=== PATIENT | male | born 1985 | race Caucasian/White ===

== ENCOUNTER 2018-01-21 23:50 | Emergency (ER) | payer OTHER ==
[~2018-01-21] VITALS: Ht 175.3 cm; Wt 79.6 kg
[~2018-01-21 23:50] MED LIST: IBUP-1050 PO
[2018-01-22] VITALS: TEMP 36.8; Ht 175.3 cm; Wt 79.6 kg
--- NOTE | 2018-01-22 00:20 | EMERGENCY ROOM VISIT NOTE ---
History Report prepared by Tanvi: Max Cano Under the Supervision of: Dr. Rosalind Rolon D.O. First contact with patient: 00:10 Chief Complaint: MENTAL HEALTH EVALUATION Stated Complaint: ANXIETY,MENTAL HEALTH History of Present Illness The patient is a 32 year old male who presents to the Emergency Room with complaints of persistent severe general anxiety for the last 24 hours. The patient states that minor things are bothering him. He is not sure why. Per , their pet chickens recently . They deny any other stressors. 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 He states that he enjoys taking care of their animals. He has a history of depression, anxiety, and bipolar disorder. He notes his depression is controlled with Effexor and Zyprexa He states that he was recently placed on Inderal three weeks ago for his anxiety, though he is not finding any relief with it. He reports a history of alcoholism and states that he drank a lot yesterday and today. He notes that he has been improved with it, though his anxiety is causing him to turn to alcohol more. He reports smoking marijuana twice a month. He denies any abdominal pain. He notes that he is eating and drinking well. Source of History: patient Onset: 24 hours Position: other (general) Symptom Intensity: severe Quality: other (anxiety) Timing: other (persistent) Associated Symptoms: No abdominal pain Review of Systems See HPI for pertinent positives & negatives. A total of 10 systems reviewed and were otherwise negative. Past Medical & Surgical Medical Problems: (1) Anxiety (2) Bipolar disorder (3) Depression (4) Drug overdose (5) Kidney stone Family History Diabetes mellitus FH: heart disease Hypertension Kidney stones Social History Smoking Status: Current Every Day Smoker Alcohol Use: occasionally Drug Use: marijuana Marital Status: single Housing Status: lives with family Occupation Status: unemployed Current/Historical Medications Scheduled Ibuprofen (Advil), 400-600 MG PO Q6H Allergies Coded Allergies: Aspirin (Unverified Adverse Reaction, Intermediate, VOMITING, MIGRAINES, 09/15/16) PER UROLOGY RECORDS Ketorolac Tromethamine (Verified Adverse Reaction, Unknown, nausea, ) Tramadol (Verified Adverse Reaction, Unknown, nausea, 09/15/16) Physical Exam Vital Signs Date Time Temp Pulse Resp B/P (MAP) Pulse Ox O2 Delivery O2 Flow Rate FiO2 01/22/18 01:55 84 18 140/91 95 Room Air 01/22/18 00:00 36.8 119 18 139/87 98 Room Air Physical Exam General : Appears sleep deprived. Smells of ETOH. HEENT: Head - normocephalic and atraumatic Pupils are equal, round, and reactive to light. Extraocular eye muscles are intact, and sclera are anicteric. Nose - moist nasal mucosa without discharge. Mouth - moist buccal mucosa. Oropharynx is nonerythematous and there is no tonsillar exudate or edema noted. Neck: Supple; no JVD, nuchal rigidity, cervical lymphadenopathy, or auscultated bruits. Heart: Regular rate and rhythm. There is a normal S1 and S2 with no murmurs, clicks, or gallops appreciated. Lungs: Clear to auscultation bilaterally with no wheezes, rales, or rhonchi. Abdomen: Soft, completely nontender, nondistended, with good bowel sounds. There are no palpable pulsatile masses or hepatosplenomegaly. There is no guarding, rigidity, or rebound noted. Extremities: No evidence of cyanosis, clubbing, or edema. There are easily palpable peripheral pulses. Skin: warm and dry with good turgor and no rashes. Psych: Describes significant anxiety, but denies SI or HI. Medical Decision & Procedures Laboratory Results 01/22/18 00:39 01/22/18 00:39 Test 01/22/18 00:10 01/22/18 00:39 Urine Color YELLOW Urine Appearance CLEAR (CLEAR) Urine pH 6.5 (4.5-7.5) Urine Specific Mark 1.011 (1.000-1.030) Urine Protein NEG (NEG) Urine Glucose (UA) NEG (NEG) Urine Ketones NEG (NEG) Urine Occult Blood NEG (NEG) Urine Nitrite NEG (NEG) Urine Bilirubin NEG (NEG) Urine Urobilinogen NEG (NEG) Urine Leukocyte Esterase NEG (NEG) Urine Opiates Screen POS (NEG) Urine Methadone, Qualitative NEG (NEG) Urine Barbiturates NEG (NEG) Urine Phencyclidine (PCP) Level NEG (NEG) Ur Amphetamine/Methamphetamine NEG (NEG) MDMA (Ecstasy) Screen NEG (NEG) Urine Benzodiazepines Screen NEG (NEG) Urine Cocaine Metabolite NEG (NEG) Urine Marijuana (THC) POS (NEG) Red Blood Count 4.98 M/uL (4.7-6.1) Mean Corpuscular Volume 94.8 fL (80-100) Mean Corpuscular Hemoglobin 32.7 pg (25-34) Mean Corpuscular Hemoglobin Concent 34.5 g/dl (32-36) RDW Standard Deviation 50.3 fL (36.4-46.3) RDW Coefficient of Variation 14.4 % (11.5-14.5) Mean Platelet Volume 9.2 fL (7.4-10.4) Anion Gap 4.0 mmol/L (3-11) Est Creatinine Clear Calc Drug Dose 89.2 ml/min Estimated GFR () 92.8 Estimated GFR (Non- 80.1 BUN/Creatinine Ratio 12.0 (10-20) Calcium Level 9.8 mg/dl (8.5-10.1) Total Bilirubin 0.5 mg/dl (0.2-1) Direct Bilirubin 0.1 mg/dl (0-0.2) Aspartate Amino Transf (AST/SGOT) 36 U/L (15-37) Alanine Aminotransferase (ALT/SGPT) 105 U/L (12-78) Alkaline Phosphatase 88 U/L (45-117) Total Protein 8.6 gm/dl (6.4-8.2) Albumin 4.5 gm/dl (3.4-5.0) Thyroid Stimulating Hormone (TSH) 1.900 uIu/ml (0.300-4.500) Salicylates Level 1.9 mg/dl (2.8-20) Acetaminophen Level 2 ug/ml (10-30) Ethyl Alcohol mg/dL 115.0 mg/dl (0-3) Laboratory results per my review. Medications Administered Medications (Trade) Dose Ordered Sig/Mil[place] Route Start Time Stop Time Status Last Admin Dose Admin Acetaminophen (Tylenol Tab) 1,000 mg NOW STAT PO 01/22/18 00:44 01/22/18 00:45 DC 01/22/18 00:53 1,000 MG Lorazepam (Ativan Tab) 1 mg NOW STAT SL 01/22/18 02:00 01/22/18 02:01 DC 01/22/18 02:08 1 MG Lorazepam (Ativan 1MG Home Pack) 1 homepack UD ONCE PO 01/22/18 02:00 01/22/18 02:01 DC 01/22/18 02:00 1 HOMEPACK Procedure 0044: Ordered Tylenol 1,000 mg PO 0200: Ordered Ativan 1 homepack PO and Ativan 1 mg SL ED Course 0025: Past medical records reviewed. The patient was evaluated in room A8. A complete history and physical exam was performed. Labs were drawn as above. 0044: Ordered Tylenol 1,000 mg PO for headache 0145: I reassessed the patient at this time. I discussed the results and treatment plan with the patient. He states that he took a left over Tylenol with codeine. He denies any heroin use. I encouraged him to avoid using alcohol and opioids. I explained the risks of mixing alcohol and benzodiazepines. I answered all pertaining questions that he had. He expressed understanding and verbalized agreement. He will receive a homepack of Ativan. The patient will be discharged home. 0200: Ordered Ativan 1 homepack PO and Ativan 1 mg SL Medical Decision The patient is a 32 year old male who presents to the ED with anxiety. Differential diagnosis includes mood disorder, alcohol intoxication, medication noncompliance, thought disorder, and anxiety. Lab results showed: Salicylates 1.9; Acetaminophen 2; Alcohol 115. Tox screen positive for marijuana and opiates. Urinalysis is negative. Normal TSH. Normal Glucose. Normal renal function. Normal LFTs. Stable H&H. This is a 32-year-old male patient with a history of bipolar disorder who presents to the emergency department with worsening anxiety. The patient explains that he is currently taking Effexor and Zyprexa which adequately treat his depression. However, his anxiety continues to escalate. He has been prescribed Inderal to use for increased anxiety but this has not helped. The patient has been self-medicating with alcohol. He does have a history of alcohol abuse and does not want to do this anymore. He was given some Ativan to use over the next couple of days until he can follow-up with you [facility] Medication Reconcilliation Current Medication List: was personally reviewed by me Blood Pressure Screening Patient's blood pressure: Elevated blood pressure Blood pressure disposition: Elevated BP felt to be situational Impression Primary Impression: Acute anxiety Additional Impression: Alcohol intoxication Scribe Attestation The scribe's documentation has been prepared under my direction and personally reviewed by me in its entirety. I confirm that the note above accurately reflects all work, treatment, procedures, and medical decision making performed by me. Departure Information Dispostion Home / Self-Care Referrals No Doctor, Assigned (PCP) Forms HOME CARE DOCUMENTATION FORM, IMPORTANT VISIT INFORMATION Patient Instructions Alcohol Intoxication - [facility], Anxiety Body Response, Anxiety Disorder, My [facility] Additional Instructions Atbanner - take one at bedtime for sleep. You must avoid alcohol use with this med and with codeine Follow up at [facility] on Problem Qualifiers Additional Impression: Alcohol intoxication Complication of substance-induced condition: uncomplicated Qualified Codes: F10.920 - Alcohol use, unspecified with intoxication, uncomplicated
[2018-01-22] MEDS ORDERED: ACETAMINOPHEN 500 MG TAB PO STA (00:44)
[2018-01-22 00:58] LABS: HEMATOCRIT 47.2 % (42-52); HEMOGLOBIN 16.3 g/dL (14.0-18.0); MEAN CELL VOLUME 94.8 fL (80-100); MEAN CORPUSCULAR HEMOGLOBIN 32.7 pg (25-34); MEAN CORPUSCULAR HGB CONC 34.5 g/dl (32-36); MEAN PLATELET VOLUME 9.2 fL (7.4-10.4); PLATELET COUNT 361 K/uL (130-400); RED CELL DISTRIBUTION WIDTH CV 14.4 % (11.5-14.5); RED CELL DISTRIBUTION WIDTH SD 50.3 fL (36.4-46.3); WHITE BLOOD COUNT 6.79 K/uL (4.8-10.8)
[2018-01-22 01:15] LABS: ALBUMIN 4.5 gm/dl (3.4-5.0); CALCIUM 9.8 mg/dl (8.5-10.1); CREATININE 1.2 mg/dl (0.60-1.40); POTASSIUM 4.4 mmol/L (3.5-5.1)
[2018-01-22 01:26] LABS: TOTAL PROTEIN 8.6 gm/dl (6.4-8.2)
[2018-01-22 01:55] VITALS: BP 140/91; PULSE 84; O2SAT 95
[2018-01-22] MEDS ORDERED: ATIVAN 1MG HOMEPACK PO ONE (02:00)
[2018-01-22] MEDS ORDERED: LORAZEPAM 1 MG TAB SL STA (02:00)
== END 2018-01-22 02:11 | disposition home or self-care (01) ==
LOC: C.EDB 23:51 → C.EDA 01-22 02:11
DX: F41.9 Anxiety disorder, unspecified (principal); F10.920 Alcohol use, unspecified with intoxication, uncomplicated; Y90.5 Blood alcohol level of 100-119 mg/100 ml; F31.9 Bipolar disorder, unspecified; F32.9 Major depressive disorder, single episode, unspecified; F17.200 Nicotine dependence, unspecified, uncomplicated; F12.90 Cannabis use, unspecified, uncomplicated; Z88.8 Allergy status to other drugs, medicaments and biological substances

== ENCOUNTER 2020-06-27 00:43 | Observation (INO) ==
--- NOTE | 2020-06-27 10:53 | Critical Care Consultation ---
Date of Consultation June 27, 2020 Assessment & Plan (1) Suicide attempt by drug overdose: Impression: 34-year-old male transferred from outside emergency room for ICU level care due to acute alcohol intoxication and clonidine overdose. The patient is now almost 18 hours post ingestion and is been in a monitored setting for over 12 hours. It appears that dopamine was initiated per poison control prophylactically although there is some report that the patient did have some hypotension in the emergency room and [place]. He is labs are unremarkable. His EKG is unremarkable and he is awake alert with no evidence of increased sedation associated with the clonidine. I suspect at this point time his alcohol is probably metabolized off. Recommendations: 1. Suicide attempt by overdose: Will have the hospitalist complete the behavioral health evaluation and see whether or not psychiatric hold is necessary for this patient. Discussed with them to get this done next but this is silly as the patient is not currently on hold. 2. Clonidine overdose: Patient does not appear to be overtly sedated from the medication. We will see how he does with discontinuation of the dopamine. If he does well, I think at this point time he can likely be transferred out of the intensive care unit and we will sign off on him. 3. History of alcohol use: Will place the patient on oral thiamine and folate. Advance his diet. Activities out of bed to chair. Will repeat labs now that he is here. No indication for repeat imaging from my perspective. Again the patient appears reasonably stable and if he can be maintained off vasopressor agents I suspect he can be transferred to the floor for evaluation and management of his other medical issues. History of Present Illness Attending Physician: Kiko Maxwell MD History of Present Illness Asked by hospitalist to assist in management this patient transferred from outside emergency room due to intentional overdose as a suicide attempt. History is obtained from review of the outside medical records as well as interview the patient. Patient is a 34-year-old male with a history of bipolar disease and substance abuse as well as tobacco abuse and marijuana use who apparently had family psychosocial stressors last evening and took about 30 tablets of his clonidine which she was prescribed for anxiety as well as a significant mount of alcohol. He states that he was trying to kill himself with the ingestion. He immediately had second thoughts and called 911. He was taken to [place] emergency room. Poison control apparently recommended dopamine infusion which was initiated at 5 mics per kilo per minute. He was transferred to [facility]. Over 12 hours of elapsed between the time we were initially contacted to accept the patient and the time the patient arrived due to issues relating to logistics and transportation. The patient was assessed immediately upon arrival to the ICU. He is awake alert and conversant. Is complaining of a mild headache but otherwise is stable. He is on dopamine. He denies any abdominal pain nausea or vomiting. He is not endorsing suicidal or homicidal ideation currently. Allergies Allergy/AdvReac Type Severity Reaction Status Date / Time aspirin AdvReac Intermediate VOMITING, Unverified 09/15/16 23:58 MIGRAINES ketorolac AdvReac Unknown nausea Verified 09/15/16 23:58 tramadol AdvReac Unknown nausea Verified 09/15/16 23:58 Home Medications Home Medications Medication Instructions Recorded Confirmed Type hydroxyzine pamoate [Vistaril] 25 mg PO DIRECTED PRN 07/28/18 07/28/18 History lorazepam [Ativan] 1 mg PO DIRECTED PRN 07/28/18 07/28/18 History olanzapine [Zyprexa] 5 mg PO DAILY 07/28/18 07/28/18 History venlafaxine [Effexor XR] 37.5 mg PO DAILY 07/28/18 07/28/18 History Patient History Medical History (Updated 06/27/20 @ 10:57 by Fabian Nicholas MD) Anxiety Dehydration Depression Drug overdose Drug-seeking behavior Elevated lipase Elevated liver enzymes Finger pain Ganglion cyst Gastroenteritis Kidney stone Nausea vomiting and diarrhea Orchitis and epididymitis Renal colic on right side Testicular pain, right Family History (Updated 07/28/18 @ 04:19 by Heather Portillo) Other Cancer Diabetes Heart disease Hypertension Lung disease Social History (Updated 07/28/18 @ 04:18 by Heather Portillo) Smoking Status: Current every day smoker Hx Alcohol Use: Yes Hx Substance Use: No Preferred Language: [place] Current Living Situation: Family Feels Safe at Home: Yes Results & Data Results & Data ([facility]) Laboratory Results Outside clinical notes were reviewed. A total of 20 minutes was spent in review these medical records. Labs at the outside facility yesterday evening showed a sodium of 137 potassium 3.8 chloride 104 bicarb 28 BUN 17 creatinine 1.22 with a glucose of 98. Albumin was 3.6 with a calcium of 8.4. Total bili of 0.4. AST ALT and alk phos were all normal. Alcohol level 168 TSH 1.63 White blood cell count 6.7 with hemoglobin and hematocrit of 13 and 39 and a platelet count of 290 Acetaminophen level undetectable Salicylate 3.4 Urine drug screen positive for THC and opiates Urinalysis negative EKG showed normal sinus rhythm with normal TX, QRS, and QT intervals Coding Level of Care Code 04308 Inpt Consult Level 4 Diagnoses Suicide attempt by drug overdose T50.902A
[2020-06-27] MEDS ORDERED: ICU PROTOCOL FOR HYPERGLYCEMIA PRN (11:06)
--- NOTE | 2020-06-27 11:14 | History & Physical Report ---
Date of Service June 27, 2020 Assessment & Plan (1) Suicide attempt by drug overdose: Overdose on 30 tablets of clonidine combined with alcohol and marijuana Now awake and alert, vss, electrolytes wnl Dopamine infusion discontinued No longer expressing suicidal ideation Continue suicide precautions Consult psych - pending 302 if necessary - patient may not leave AMA Will transfer out of ICU, appreciate intensivists' assistance (2) Depression: Will resume home lamotrigine and buspirone, will hold clonidine (3) Anxiety: As above (4) Solitary kidney: Kidney function is stable (5) DVT prophylaxis: SCDs Admission and Anticipated Discharge Date Admission Date: June 27, 2020 History of Present Illness Mr. Urban was a transfer from [facility] emergency room. He was placed in intensive care when he arrived at [facility]. He has a history of bipolar disease and substance abuse as well as tobacco and marijuana use. He took about 30 tablets of clonidine which is prescribed to him for anxiety and stated to the packing inspector that he was trying to kill himself but had second thoughts afterward and called 911. He was started on a dopamine infusion per poison control's recommendation. Pmhx: bipolar, anxiety, PTSD, depression, congenital solitary kidney Social: lives with father and his father's fiance and his son, recently from his who has their 8 month old son, smokes marijuana, has been sober for 8 months but relapsed last evening, smoker 1ppd for 18 years, unemployed. Family: anxiety, depression Primary Care Provider: Adam Ledezma Allergies Allergy/AdvReac Type Severity Reaction Status Date / Time aspirin AdvReac Intermediate VOMITING, Unverified 09/15/16 23:58 MIGRAINES ketorolac AdvReac Unknown nausea Verified 09/15/16 23:58 tramadol AdvReac Unknown nausea Verified 09/15/16 23:58 Home Medications Home Medications Medication Instructions Recorded Confirmed Type buspirone 10 mg PO TID 06/27/20 06/27/20 History clonidine HCl 0.1 mg PO TID 06/27/20 06/27/20 History lamotrigine 50 mg PO QAM 06/27/20 06/27/20 History lamotrigine 100 mg PO HS 06/27/20 06/27/20 History Past Med/Surg History Medical History Anxiety Dehydration Depression Drug overdose Drug-seeking behavior Elevated lipase Elevated liver enzymes Finger pain Ganglion cyst Gastroenteritis Kidney stone Nausea vomiting and diarrhea Orchitis and epididymitis Renal colic on right side Testicular pain, right Family History Other Cancer Diabetes Heart disease Hypertension Lung disease Social History Smoking Status: Current every day smoker Cigarettes Per Day: 20; Second Hand Exposure: No; Do You Dip or Chew Tobacco: No; Tobacco Cessation Education Requested by Patient: No Hx Alcohol Use: Yes Alcohol type: beer and hard liquor Hx Substance Use: Yes Last Used Substance Other:: 06-26-2020 Substance Use Type Other:: smoke marijuana Preferred Language: [place] Communication Ability: Effective Home Health Aide Caregiver Required: No marital status: Current Living Situation: Spouse How many Children do You have: 2 Other Information That Helps Us Care for You: No Feels Safe at Home: Yes Safety Concerns: Feels Safe At This Time Review of Systems Constitutional: no fever, no chills and no body aches Respiratory: no cough, no dyspnea and no wheezing Cardiovascular: no chest pain, no dyspnea and no palpitations Gastrointestinal: no abdominal pain, no nausea and no vomiting Genitourinary: no dysuria and no urinary hesitancy Musculoskeletal: no back pain and no joint pain Integumentary: no rash Neurologic: + headache(s) Psychiatric: no suicidal ideation Physical Exam Physical Exam: General: no distress Eyes: normal inspection, PERLL Respiratory: chest non tender, clear to auscultation, normal breath sounds, no respiratory distress, no accessory muscle use Cardiac: regular rate and rhythm, no rub or gallop, no murmur, no edema, no jvd GI/: active bowel sounds, no abd pain or tenderness, soft, non distended Extremities: normal range of motion, normal strength, non tender Neuro/Psych: alert and oriented x 3, normal mood and affect Skin: normal color, dry Results & Data Results & Data ([facility]) Vital Signs (Past 12 Hours) Vital Signs Pulse Resp BP Pulse Ox 06/27/20 11:00 67 14 97 06/27/20 10:55 66 11 L 106/45 L 97 06/27/20 10:46 74 19 96 06/27/20 10:45 69 15 116/59 L 95 06/27/20 10:42 56 L 18 95 06/27/20 10:37 56 L 14 112/59 L 95 Code Status & VTE Plan VTE Prophylaxis Plan VTE Prophylaxis will be ordered: Yes Supervising Physician Co-Signing Physician Notes Patient seen and examined with Cathie GUNDERSON. I agree with her exam findings, review of systems, assessment and plan. I personally reviewed the lab work and imaging as well. patient transferred from [facility] due to intentional overdose with Clonidine and alcohol he was initially requiring Dopamine at [facility] Dopamine stopped once transferred here, vitals stable he is asking for nicotine patch as he normally smokes one pack per day psychiatry evaluated, will transfer to inpatient psych once he is medically stable - Intentional overdose with clonidine: will observe today and over night on tele to make sure he remains stable if no issues over night the plan to transfer to psychiatry - Anxiety: will use Vistaril PRN for now - Tobacco abuse: Nicotine patch PG Care Time/CCT Total # of Minutes Spent Total Time Spent with Patient: Total time spent is greater than 50% in coordination of care (as documented) at patient's floor/unit and/or counseling patient: Coding Level of Care Code 70087 Initial Inpt Care Lvl 3 Diagnoses Suicide attempt by drug overdose T50.902A Depression F32.9 Anxiety F41.9 Solitary kidney Q60.0 DVT prophylaxis Z29.9
[2020-06-27 11:17] LABS: Eosinophils # (auto) 0.08 K/uL (0-0.5); Hematocrit (blood only) 39.6 % (42-52); Hemoglobin 13.5 g/dL (14.0-18.0); Immature Granulocytes # (auto) 0.01 K/uL (0.00-0.02); Immature Granulocytes % (auto) 0.1 %; Lymphocytes # (auto) 1.66 K/uL (1.2-3.4); Lymphocytes % (auto) 21.7 %; Mean Corpuscular Hemoglobin 31.8 pg (25-34); Mean Corpuscular Hgb Conc 34.1 g/dL (32-36); Mean Corpuscular Volume 93.4 fL (80-100); Mean Platelet Volume 9.6 fL (7.4-10.4); Monocytes % (auto) 7.8 %; Neutrophils # (auto) 5.31 K/uL (1.4-6.5); Neutrophils % (auto) 69.4 %; Platelet Count 248 K/uL (130-400); RDW Coefficient of Variation 13.3 % (11.5-14.5); RDW Standard Deviation 45.5 fL (36.4-46.3); Red Blood Count 4.24 M/uL (4.7-6.1); White Blood Count 7.66 K/uL (4.8-10.8)
[2020-06-27 11:33] LABS: Albumin Level 3.6 gm/dl (3.4-5.0); Calcium 8.8 mg/dl (8.5-10.1); Creatinine Clr Calc Pharmacy 124.7 ml/min; Est GFR (African American) 133.3; Potassium 4.5 mmol/L (3.5-5.1)
[2020-06-27 11:36] LABS: Albumin Globulin Ratio 1.2 (0.9-2); Bilirubin,Total 0.7 mg/dl (0.2-1); Total Protein 6.6 gm/dl (6.4-8.2)
[2020-06-27] MEDS: MULTIVITAMIN TAB PO SCH (12:58)
[2020-06-27] MEDS: THIAMINE HCL 100 MG TAB PO SCH (13:02)
--- NOTE | 2020-06-27 13:58 | Psychiatric Consultation ---
Date of Consultation June 27, 2020 Impression / Recommendations Impression Dr. Zoe Mckeon was directly involved in review and discussion of the patient's case and participated in medical decision making regarding treatment recommendations. RECOMMENDATIONS: 06/27 - Psychiatric consultation requested by hospitalist team to evaluate patient s/p intentional overdose as a suicide attempt. - Pt admits that he drank about 1/2 a glass of water, in which he dissolved ~30 tablets of 0.1mg clonidine (glass did sit for 1-2 days before he drank the concoction). He reported to numerous people that he had done this with the intent to end his life. Recommend inpatient psychiatric treatment based on clear suicide attempt - and patient now stating that he wished he had never called for help. - Continue home psychotropic medications as medically appropriate: buspirone 10mg TID, lamotrigine 50mg qAM and 100mg qHS. - Suggest putting the patient on AWSS protocol, as he has a history of alcohol abuse and admits to drinking a 1/5 of vodka a day for at least the past week. There is also documentation that the patient's toxicology screen was positive for opiates. Should attempt to gather collateral regarding this as well, as patient may also experience withdrawal from this depending on his use history. - 302 petitioning statement was prepared. Pt should not be permitted to leave the medical floor AMA. Can call [facility] [employer] [facility]. mental health delegate to activate 302 warrant if patient is demanding to leave hospital AMA prior to time of medical clearance. - Will need to try to gather collateral information from family, as patient overdosed with his 9-year-old son at home, but states that both the patient's father and step-mother were in the house. Will attempt to gather more information and determine if a Child-Line report is indicated. - Appreciate the opportunity to participate in the care of this patient. Please reach out to our service with any additional questions or updates. Risk Factors Assessment Do You Have Access To A Gun?: No Psych History Identifying Data 34-year-old male admitted medically on 06/27/2020 upon transfer to our ICU from the [facility] ED. Pt is s/p intentional overdose of ~30 tablets of 0.1mg clonidine and alcohol. Psychiatric consultation was requested by hospitalist service to evaluate patient for suicidality s/p intentional overdose. Chief Complaint "I tried to overdose yesterday. Right after I realized how stupid it was, I called my aunt." History of Present Illness Morgan Urban is a 34-year-old male admitted medically on 06/27/2020 upon trans arely to [facility] ICU from [facility] ED. Pt was referred for treatment following an intentional overdose of clonidine and alcohol, with verbalized intent to end his life. Pt reportedly dissolved ~30 - 0.1mg tablets of clonidine in water, and ingested at least half of the mixture with alcohol. Psychiatric consultation was requested by hospitalist service to evaluate the patient for intentional overdose/suicide attempt. Pt was guarded, but at least superficially cooperative with most of encounter. Upon entering patient's room, he is found to be sleeping and wearing an eye mask. Pt does arouse to verbal stimuli. He states "I tried to overdose yesterday. Right after I realized how stupid it was, I called my aunt." Pt states that he has been struggling with numerous stressor - specifically the recent of his dog, concern that his father may have cancer, and an argument with his via phone that he is worried may lead to another separation. Pt states that the overdose was impulsively related to the overwhelming stress. Despite reports that the overdose was impulsive, the patient admits that he had mixed the clonidine and water solution 1-2 days before he ultimately overdose. Pt states "I mixed it into a drink and thought I would take it, I don't know why I didn't. I put it up on a shelf. Then when I come home yesterday I was listening to music and heard a song that set me right off, so I chugged it. Got mcc before thinking 'oh shit'." Pt states his 9-year-old son was home at the time, but patient also claims his father and step-mother were in the house. According to the patient's report, medications for his mood and anxiety have been effective and he feels his presentation is more situational. Because of this, patient does not feel inpatient treatment is indicated. He states he is concerned about his animals and "I just need to get home, and I need a cigarette." Pt was informed of recommendation for inpatient psychiatric treatment given intentional overdose and limited outpatient services. Pt states "I knew it, I knew I screwed up in calling for help. I wish I hadn't called anyone at all." When asked what the patient believes the alternative would have been, he states "I don't care." He denied other needs at this time, but did indicate that he would be willing to sign ROIs to allow for coordination with family and his outpatient psychiatric prescriber. Past Psychiatric History Current Psychiatric Diagnosis: per patient report - bipolar disorder, anxiety; substance abuse Outpatient Services: Psychiatric prescriber - NEPTALI [facility] - [facility] - none presently, previously with Kelsey through [facility] in [place] History of [facility] through [facility]; but no active services Previous Psych Admissions: Admits to numerous inpatient psychiatric hospitalizations, most recently at the [facility] in 2018. States he has been treated at the [facility], stating he has had a preference for facilities that allow tobacco use. Do You Have Access To A Gun?: No History of Previous Suicide Attempt: Yes Past Medication Trials: Obtained from external prescription history: 1. Effexor 2. Lamictal 3. Propranolol 4. Doxepin 5. Buspirone 6. Clonidine Pt admits to previous medication trials, stating "If it exists, I've been on it" Allergies Allergy/AdvReac Type Severity Reaction Status Date / Time aspirin AdvReac Intermediate VOMITING, Unverified 09/15/16 23:58 MIGRAINES ketorolac AdvReac Unknown nausea Verified 09/15/16 23:58 tramadol AdvReac Unknown nausea Verified 09/15/16 23:58 Home Medications Home Medications Medication Instructions Recorded Confirmed Type buspirone 10 mg PO TID 06/27/20 06/27/20 History clonidine HCl 0.1 mg PO TID 06/27/20 06/27/20 History lamotrigine 50 mg PO QAM 06/27/20 06/27/20 History lamotrigine 100 mg PO HS 06/27/20 06/27/20 History Family History Reports history of schizophrenia, depression, and bipolar disorder on his father's side. Substance Abuse History Admits to daily tobacco use, 1ppd. Reports routine marijuana use as well. Pt admits to history of alcohol abuse, stating he had been sober for 8 months prior to recent relapse. He reports drinking at least 1/5 of vodka daily for at least the past week. Reportedly his toxicology screen from [place] ED was also positive for opiates, which are not currently prescribed. Personal History Living Arrangements: Home (living in house with his father, step-mother and patient's 9y/o son) Highest Grade Completed: High School Graduate and Some College Employment Status: Unemployed Marital Status: Number Of Children: 1 biological son, 9y/o; one non-biological son, 9 months History of Legal Problems: Pending charges in [facility] for simple assault, resisting arrest, and harassment. History of criminal charges. Psychological Trauma History Comment: Denied Patient History Medical History Anxiety Dehydration Depression Drug overdose Drug-seeking behavior Elevated lipase Elevated liver enzymes Finger pain Ganglion cyst Gastroenteritis Kidney stone Nausea vomiting and diarrhea Orchitis and epididymitis Renal colic on right side Testicular pain, right Family History Other Cancer Diabetes Heart disease Hypertension Lung disease Social History Smoking Status: Current every day smoker Cigarettes Per Day: 20; Second Hand Exposure: No; Do You Dip or Chew Tobacco: No; Tobacco Cessation Education Requested by Patient: No Hx Alcohol Use: Yes Alcohol type: beer and hard liquor Hx Substance Use: Yes Last Used Substance Other:: 06-26-2020 Substance Use Type Other:: smoke marijuana Preferred Language: [place] Communication Ability: Effective Dietitian Teaching Required: No Beliefs That Will Affect Care: None marital status: Current Living Situation: Spouse How many Children do You have: 2 Other Information That Helps Us Care for You: No Feels Safe at Home: Yes Safety Concerns: Feels Safe At This Time Physical Exam Psychiatric: Orientation: alert, oriented x 3 and + guarded (only superficially cooperative ) Apperance: appropriately dressed, appropriately groomed and appeared stated age Thin-appearing male, laying in bed in no acute distress. Pt wearing an eye mask. Appropriately groomed, with several tattoos covering arms and neck. He is appropriately dressed for setting, wearing paper scrubs. Eye Contact: + fair eye contact Motor Behavior: no abnormal motor movements (observed while laying in bed) Speech: normal rate/rhythm/volume of speech (irritable tone) Affect: + blunted affect, + irritable affect and mood congruent with affect Mood: + depressed mood and + irritable mood Thought Process: goal directed thought process and clear/coherent thought process Thought Content: reality based without delusions and + hopelessness Suicidal Thoughts: denies suicidal thoughts but admits that overdose prior to admission was a suicide attempt Homicidal Thoughts: denies homicidal thoughts Hallucinations: no auditory hallucinations and no visual hallucinations Cognition: attention grossly intact and language grossly intact Insight: + poor insight Judgement: + poor judgement Vital Signs (Past 24 Hours): Last Vital Signs Temp 36.6 C 06/27/20 10:30 Pulse 67 06/27/20 11:00 Resp 14 06/27/20 11:00 BP 106/45 L 06/27/20 10:55 Pulse Ox 97 06/27/20 11:00 Review of Systems Constitutional: denied; other than strong nicotine cravings Cardiovascular: denied Respiratory: denied Gastrointestinal: denied Neurological: denied Psychiatric: denies symptoms other than stated above Total of at least 10 systems reviewed, pertinent positives as above and in HPI. Results & Data (PSY) Medications Administered Multivitamins (Multivitamin Tab) 1 tab PO QAM [facility] Stop: 07/27/20 10:59 Last Admin: 06/27/20 12:58 Dose: 1 tab Documented by: [id number] Thiamine HCl (Thiamine Hcl 100 Mg Tab) 100 mg PO QAM [facility] Stop: 07/27/20 10:59 Last Admin: 06/27/20 13:02 Dose: 100 mg Documented by: [id number] Coding Level of Care Code 82523 [facility] Intl Hosp Care Lvl 2
[2020-06-27] MEDS ORDERED: ACETAMINOPHEN 325 MG TAB PO PRN (14:00)
[2020-06-27] MEDS ORDERED: NICOTINE 21 MG/24 HR TDSY TD ONE (15:15)
[2020-06-27] MEDS ORDERED: lamoTRIgine 100 MG TAB PO SCH (21:00)
[2020-06-27] MEDS ORDERED: MELATONIN 3 MG TAB PO PRN (23:08)
[2020-06-28 07:45] LABS: Basophils # (auto) 0.01 K/uL (0-0.2); Basophils % (auto) 0.1 %; Eosinophils % (auto) 1.4 %; Hematocrit (blood only) 40.3 % (42-52); Hemoglobin 13.4 g/dL (14.0-18.0); Lymphocytes # (auto) 2.11 K/uL (1.2-3.4); Lymphocytes % (auto) 29.1 %; Mean Corpuscular Hemoglobin 31.4 pg (25-34); Mean Corpuscular Hgb Conc 33.3 g/dL (32-36); Mean Corpuscular Volume 94.4 fL (80-100); Mean Platelet Volume 10.1 fL (7.4-10.4); Monocytes # (auto) 0.79 K/uL (0.11-0.59); Monocytes % (auto) 10.9 %; Neutrophils # (auto) 4.24 K/uL (1.4-6.5); Neutrophils % (auto) 58.5 %; Platelet Count 227 K/uL (130-400); RDW Coefficient of Variation 13.6 % (11.5-14.5); Red Blood Count 4.27 M/uL (4.7-6.1); White Blood Count 7.25 K/uL (4.8-10.8)
[2020-06-28 08:13] LABS: BUN Creatinine Ratio 13.2 (10-20); Calcium 9.6 mg/dl (8.5-10.1); Creatinine Clr Calc Pharmacy 106.6 ml/min; Est GFR (African American) 127.9; Est GFR (Non-African American) 110.3; Potassium 3.9 mmol/L (3.5-5.1)
[2020-06-28] MEDS: MULTIVITAMIN TAB PO SCH (08:16)
[2020-06-28] MEDS: THIAMINE HCL 100 MG TAB PO SCH (08:16)
[2020-06-28] MEDS ORDERED: NICOTINE 21 MG/24 HR TDSY TD SCH (09:00)
[2020-06-28] MEDS ORDERED: lamoTRIgine 25 MG TAB PO SCH (09:00)
--- NOTE | 2020-06-28 14:14 | Electrocardiogram Report ---
Test Reason : Blood Pressure : / mmHG Vent. Rate : 084 BPM Atrial Rate : 084 BPM P-R Int : 126 ms QRS Dur : 088 ms QT Int : 348 ms P-R-T Axes : 054 088 044 degrees QTc Int : 411 ms Normal sinus rhythm Normal ECG No previous ECGs available Confirmed by Navdeep Valencia ([id number]) on 06/28/2020 2:13:38 PM Referred By: NO PCP Confirmed By:Navdeep Valencia
--- NOTE | 2020-06-28 15:08 | Discharge Summary ---
Date of Service June 28, 2020 Admission HPI Per Admitting Provider Mr. Urban was a transfer from [place] emergency room. He was placed in intensive care when he arrived at [facility]. He has a history of bipolar disease and substance abuse as well as tobacco and marijuana use. He took about 30 tablets of clonidine which is prescribed to him for anxiety and stated to the shirt turner that he was trying to kill himself but had second thoughts afterward and called 911. He was started on a dopamine infusion per poison control's recommendation. Pmhx: bipolar, anxiety, PTSD, depression, congenital solitary kidney Social: lives with father and his father's fiance and his son, recently from his who has their 8 month old son, smokes marijuana, has been sober for 8 months but relapsed last evening, smoker 1ppd for 18 years, unemployed. Family: anxiety, depression Primary Care Provider: Adam Ledezma Principal Diagnosis Suicide attempt Discharge Exam Constitutional WD/WN, vitals as above Respiratory normal respiratory effort, lungs clear to auscultation Cardiovascular RRR, no murmur, no edema Gastrointestinal (Abdomen) normal bowel sounds, soft, nontender, no hepatosplenomegaly Musculoskeletal no cyanosis or clubbing, extremities motor strength 5/5 Skin no rashes, warm and dry Neurologic moves all extremities and awake Psychiatric A+Ox3, euthymic affect Discharge Data Allergies Allergy/AdvReac Type Severity Reaction Status Date / Time aspirin AdvReac Intermediate VOMITING, Unverified 09/15/16 23:58 MIGRAINES ketorolac AdvReac Unknown nausea Verified 09/15/16 23:58 tramadol AdvReac Unknown nausea Verified 09/15/16 23:58 Consultations 06/27/20 11:06 Consult Psychiatry Routine 06/27/20 11:07 Consult Case Management - Discharge Planning Routine Consult Dry Heat Cabinet Attendant Routine 06/27/20 11:13 Consult Behavioral Health Liaison Routine Hospital Course (1) Suicide attempt by drug overdose: Overdose on 30 tablets of clonidine combined with alcohol and marijuana Now awake and alert, vss, electrolytes wnl Dopamine infusion discontinued No longer expressing suicidal ideation Continue suicide precautions Consult psych - pending 302 if necessary - patient may not leave AMA Will transfer out of ICU, appreciate intensivists' assistance (2) Depression: Will resume home lamotrigine and buspirone, will hold clonidine (3) Anxiety: As above (4) Solitary kidney: Kidney function is stable (5) Alcohol abuse: had been sober for 8 months with heavy alcohol use over the last week Thiamine and multivitamin given (6) DVT prophylaxis: SCDs Total Time Total Time Spent Total Time Spent (In Minutes): greater than 30 minutes Discharge Plan Discharge Items Patient Disposition: Transfer Behavioral Health Fac Reason For Visit: INTENTIONAL OVERDOSE Discharge Diagnosis: Intentional overdose Activity: Resume your previous activity Non-emergency contact: Primary Care Provider Call non-emergency contact if: you have any medication questions Follow-up/Referrals: Adam Ledezma [Primary Care Provider] - Diet: Regular Addtl Attending Provider Instructions: (1) Suicide attempt by drug overdose: Overdose of 30 tablets of clonidine combined with alcohol and marijuana Poison control recommended a dopamine infusion which was used briefly and discontinued shortly after arrival to [facility]. Heart rate, vital signs, lab work is stable. (2) Depression: Continue home lamotrigine and buspirone, hold clonidine (3) Anxiety: As above, given Vistaril inpatient for acute anxiety (4) Solitary kidney: Kidney function is stable (5) Alcohol abuse Recent heavy alcohol use - given thiamine and multivitamin, no signs of detox Pending Studies at Discharge: No Stand-Alone Forms: My [facility] Skilled Items Lines: None Medications and DC Order Prescriptions: New multivitamin [Daily-Otto] Tablet 1 tab PO QAM Qty: 7 RF: 0 thiamine HCl (vitamin B1) [Vitamin B-1] 100 mg Tablet 100 mg PO QAM Qty: 7 RF: 0 Continued buspirone 10 mg Tablet 10 mg PO TID RF: 0 lamotrigine 100 mg Tablet 100 mg PO HS RF: 0 lamotrigine 100 mg Tablet 50 mg PO QAM RF: 0 Discontinued clonidine HCl 0.1 mg Tablet 0.1 mg PO TID RF: 0 Discharge Orders: Discharge Order (Routine); Ordered 06/28/20 Ordered By: Cathie Goodson Admission Data Admit Date/Time: 06/27/20 10:25 Attending Provider: Hemanth Owusu Admit Provider: Kiko Maxwell Primary Care Provider: Adam Ledezma Other Providers: Zoe Mckeon ; Fabian Nicholas Other Interventions: Discharge Summary Assessment (RN) Last Done: 06/28/20 15:16 Supervising Physician Co-Signing Physician Notes Patient seen and examined on the day of discharge. I agree with the discharge summary by Cathie GUNDERSON. I have reviewed the chart including labs, imaging and plans for discharge. patient stable for over 24 hours on telemetry, he is now cleared for discharge to inpatient psychiatry 201 form signed and discussed with psychiatry, everything is in order - Suicide attempt, depression/anxiety took 30 tablets of Clonidine, vitals and heart rhythm stable for over 24 hours having anxiety, he is agreeable to inpatient psych, will go voluntary commitment Coding Level of Care Code D/C Day Management >30 mins Diagnoses Suicide attempt by drug overdose [id number] Depression F32.9 Anxiety F41.9 Solitary kidney Q60.0 Alcohol abuse F10.10 DVT prophylaxis Z29.9
== END 2020-06-28 18:32 ==
LOC: SUATTDRO 10:25 → INTOOBSV 10:25 → 1E 10:25 → 2W 16:27